=== PATIENT | female | born 1955 | race African-American/Black ===

== ENCOUNTER 2021-09-03 23:58 | Emergency (ER) | payer SELFPAY | END 2021-09-04 00:39 | disposition home or self-care (01) | LOC: CSHERS 23:58 | DX: I10 Essential (primary) hypertension (principal); Z79.899 Other long term (current) drug therapy; Z79.82 Long term (current) use of aspirin | CPT/HCPCS: 99283 ==

== ENCOUNTER 2023-05-01 16:40 | Emergency (ER) | payer OTHER, SELFPAY ==
[2023-05-01 17:45] LABS: SARS-CoV-2 NAA Rapid Test DETECTED (NotDetected)
== END 2023-05-01 18:20 | disposition home or self-care (01) ==
LOC: CSHERS 16:40
DX: U07.1 COVID-19 (principal); I10 Essential (primary) hypertension
CPT/HCPCS: 99283

== ENCOUNTER 2023-05-07 09:48 | Emergency (ER) | payer MEDICARE, SELFPAY | END 2023-05-07 10:19 | disposition home or self-care (01) | LOC: CSHERS 09:48 | DX: R05.9 Cough, unspecified (principal); I10 Essential (primary) hypertension | CPT/HCPCS: 99283 ==